=== PATIENT | female | born 1970 | race Caucasian/White ===

== ENCOUNTER 2016-12-10 10:28 | Emergency (ER) | payer BC ==
[2016-12-10 12:02] VITALS: BP 114/64
--- NOTE | 2016-12-10 12:24 | UC ---
Skin Complaint HPI - HPI Summary HPI Summary: c/o "cold sore" on R lower lip that started . tingling and burning. never had a cold sore before. she was in [place] this past week adn she noted while returning home 2 days ago. no fevers, no gland swelling. feels fine o/w. - History of Current Complaint Chief Complaint: UCSkin Time Seen by Provider: 12/10/16 12:24 Stated Complaint: SKIN COMPLAINT Hx Last Menstrual Period: IS ON THE CONTINUOUS BC PILL HAS A PERIOD EVERY 3 MONTHS.LAST ONE 01/02 - Allergy/Home Medications Allergies/Adverse Reactions: Allergies Allergy/AdvReac Type Severity Reaction Status Date / Time No Known Allergies Allergy Verified 12/10/16 11:57 Review of Systems Constitutional: Negative Skin: Other - rt lower lip lesion/starting to crust over. swelling decreased with ice. Eyes: Negative ENT: Negative Respiratory: Negative Cardiovascular: Negative Gastrointestinal: Negative Genitourinary: Negative Motor: Negative Neurovascular: Negative Musculoskeletal: Negative Neurological: Negative Psychological: Negative All Other Systems Reviewed And Are Negative: Yes PMH/Surg Hx/FS Hx/Imm Hx Previously Healthy: Yes Endocrine History Of: Denies: Diabetes, Thyroid Disease Cardiovascular History Of: Denies: Cardiac Disorders, Hypertension Respiratory History Of: Denies: Asthma - Surgical History Surgical History: Yes Surgery Procedure, Year, and Place: X'S 1 - Family History Known Family History: Positive: Hypertension - Social History Alcohol Use: None Substance Use Type: None Smoking Status (MU): Never Smoked Tobacco Physical Exam Triage Information Reviewed: Yes Appearance: Well-Appearing, No Pain Distress, Well-Nourished - very pleasant Vital Signs: Initial Vital Signs Temp 98.1 F 12/10/16 11:58 Pulse 71 12/10/16 11:58 Resp 16 12/10/16 11:58 BP 114/64 12/10/16 11:58 Pulse Ox 99 12/10/16 11:58 Vital Signs Reviewed: Yes Eyes: Positive: Conjunctiva Clear ENT: Positive: Pharynx normal, TMs normal, Other: - Rt lower lip with moderate sized lesion/swelling. mostly crusted over. tender. Dental Exam: Normal Neck exam: Normal Neck: Positive: Supple, Nontender, No Lymphadenopathy Respiratory Exam: Normal Respiratory: Positive: Lungs clear, Normal breath sounds, No respiratory distress, No accessory muscle use Cardiovascular Exam: Normal Cardiovascular: Positive: RRR, No Murmur, Pulses Normal Abdominal Exam: Normal Abdomen Description: Positive: Soft Musculoskeletal Exam: Normal Neurological Exam: Normal Psychological Exam: Normal Skin Exam: Normal Course/Dx - Course Course Of Treatment: sx started within 48s hrs. discussed treatment. I have given her extra pills so that she can have some if she gets future outbreak. Treat at onset of tingling. 2 gms Q 12hrs x 2 doses. she is very agreeable with this plan. - Differential Diagnoses - Skin Complaint Differential Diagnoses: Angioedema, Viral Exanthem, Other - herpes - Diagnoses Provider Diagnoses: oral herpes lesion Discharge - Discharge Plan Condition: Stable Disposition: HOME Prescriptions: ValACYclovir (*) [Valtrex 1 GM(*)] 2 gm PO BID #28 tab Patient Education Materials: Oral Herpes Simplex Virus Infections (ED) Referrals: Christiano Reed MD [Primary Care Provider] - If Needed
== END 2016-12-10 12:50 | disposition home or self-care (01) ==
LOC: UCCORT 10:28
DX: B00.1 Herpesviral vesicular dermatitis (principal)
CPT/HCPCS: 99212; G0463

== ENCOUNTER 2019-03-25 20:14 | Emergency (ER) | payer BC ==
--- NOTE | 2019-03-25 20:24 | UC ---
Eye Complaint HPI - HPI Summary HPI Summary: 49 yo female presents with left eye redness and draining. She tells me that for the last 2 days she has had left eye redness, itching, and clear discharge. She has no pain in the eye and denies getting anything into her eye. She does not wear glasses or contacts. Feels well otherwise and denies fever, sinus symptoms , sore throat, cough, headache, or rash. - History of Current Complaint Stated Complaint: EYE ISSUE Time Seen by Provider: 03/25/19 20:21 Hx Obtained From: Patient Hx Last Menstrual Period: IS ON THE CONTINUOUS BC PILL HAS A PERIOD EVERY 3 MONTHS.LAST ONE 01/02 Onset/Duration: Sudden Onset Severity Initially: Mild Severity Currently: Mild Pain Intensity: 3 Pain Scale Used: 0-10 Numeric - Allergies/Home Medications Allergies/Adverse Reactions: Allergies Allergy/AdvReac Type Severity Reaction Status Date / Time No Known Allergies Allergy Verified 03/25/19 20:28 PMH/Surg Hx/FS Hx/Imm Hx - Additional Past Medical History Additional PMH: Cold sores - Surgical History Surgical History: Yes Surgery Procedure, Year, and Place: X'S 1 - Family History Known Family History: Positive: Hypertension - Social History Lives: With Family Alcohol Use: None Substance Use Type: None Smoking Status (MU): Never Smoked Tobacco Review of Systems All Other Systems Reviewed And Are Negative: Yes Constitutional: Positive: Negative Skin: Positive: Negative Eyes: Positive: Drainage, Eye Redness ENT: Positive: Negative Respiratory: Positive: Negative Cardiovascular: Positive: Negative Gastrointestinal: Positive: Negative Neurovascular: Positive: Negative Neurological: Positive: Negative Psychological: Positive: Negative Physical Exam - Summary Physical Exam Summary: GENERAL: WDWN. No pain distress. SKIN: No rashes, sores, lesions, or open wounds. HEENT: Head: AT/NC Eyes: EOM intact. PERRLA. LEFT EYE: Mild scleral injection. Conjunctiva with mild erythema and inflammation. Mild clear discharge. RIGHT EYE : Conjunctiva clear without inflammation or discharge. No FBs appreciated Nose: NTTP maxillary and frontal sinus. NECK: Supple. Nontender. No lymphadenopathy. CHEST: No accessory muscle use. Breathing comfortably and in no distress. CV: Pulses intact. Cap refill <2seconds NEURO: Alert. PSYCH: Age appropriate behavior. Triage Information Reviewed: Yes Vital Signs: Vital Signs: Temp Pulse Resp BP Pulse Ox 99.2 F 71 18 95/64 99 03/25/19 20:23 03/25/19 20:23 03/25/19 20:23 03/25/19 20:23 03/25/19 20:23 Vital Signs Reviewed: Yes Eye Complaint Course/Dx - Course Course Of Treatment: Left conjunctivitis - Differential Dx/Diagnosis Provider Diagnosis: Conjunctivitis Discharge - Sign-Out/Discharge Documenting (check all that apply): Patient Departure All imaging exams completed and their final reports reviewed: No Studies - Discharge Plan Condition: Stable Disposition: HOME Prescriptions: Ofloxacin 0.3% (Eye Drop) [Ocuflox OPTH 0.3% (Eye Drop)] 1 drop LEFT EYE QID #1 btl Patient Education Materials: Conjunctivitis (ED) Referrals: Nicolasa Garcia NP [Primary Care Provider] - Additional Instructions: If you develop a fever, shortness of breath, chest pain, new or worsening symptoms - please call your PCP or go to the ED immediately. - Billing Disposition and Condition Condition: STABLE Disposition: Home
[2019-03-25 20:28] VITALS: BP 95/64
== END 2019-03-25 20:41 | disposition home or self-care (01) ==
LOC: UCCORT 20:14
DX: H10.9 Unspecified conjunctivitis (principal)
CPT/HCPCS: 99212; G0463

== ENCOUNTER 2019-05-03 18:55 | Emergency (ER) | payer BC ==
[2019-05-03 20:11] VITALS: BP 109/67
--- NOTE | 2019-05-03 20:17 | UC ---
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 exposed to second hand smoke at work since 04/24/19. Pt. 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 smoek was bothersome so they changed her to a non-smoking building, hwoever there are residents who have been grandfathered in and cont to smoke in the [facility] -denies asthma, no FHx asthma. -reports wheezing in her chest [facility] -no fevers/chills -no runny/congested or stuffy nose. -no ST/ear pain -no swelling in lips/tongue or throat -no rash/hives -feels more sensitive such that her deodorant seems irritating to her now. -No CP/SOB -no itching. - History of Current Complaint Chief Complaint: UCGeneralIllness Stated Complaint: ST Time Seen by Provider: 05/03/19 20:16 Hx Last Menstrual Period: IS ON THE CONTINUOUS BC PILL HAS A PERIOD EVERY 3 MONTHS.LAST ONE 01/02 Pain Intensity: 7 - Allergies/Home Medications Allergies/Adverse Reactions: Allergies Allergy/AdvReac Type Severity Reaction Status Date / Time No Known Allergies Allergy Verified 05/03/19 20:06 PMH/Surg Hx/FS Hx/Imm Hx Previously Healthy: Yes - Surgical History Surgical History: Yes Surgery Procedure, Year, and Place: X'S 1 - Family History Known Family History: Positive: Hypertension Negative: Respiratory Disease - no asthma - Social History Alcohol Use: None Substance Use Type: None Smoking Status (MU): Never Smoked Tobacco Review of Systems All Other Systems Reviewed And Are Negative: Yes Constitutional: Positive: Negative. Negative: Fever, Chills, Fatigue Skin: Positive: Negative. Negative: Rash Eyes: Positive: Other - itchy ENT: Negative: Sore Throat, Ear Ache, Nasal Discharge, Sinus Congestion, Sinus Pain/Tenderness Respiratory: Positive: Negative, Other - see above. Negative: Shortness Of Breath, Cough Cardiovascular: Positive: Negative. Negative: Palpitations, Chest Pain Gastrointestinal: Positive: Negative. Negative: Abdominal Pain, Vomiting, Diarrhea, Nausea Genitourinary: Positive: Negative Motor: Positive: Negative Neurovascular: Positive: Negative Musculoskeletal: Positive: Negative Neurological: Positive: Negative Psychological: Positive: Negative Is Patient Immunocompromised?: No Physical Exam Triage Information Reviewed: Yes Appearance: Well-Appearing, No Pain Distress, Well-Nourished - vocie normal, speaks full senetnces without any distress Vital Signs: Initial Vital Signs Temp 97.5 F 05/03/19 20:06 Pulse 75 05/03/19 20:06 Resp 24 05/03/19 20:06 BP 109/67 05/03/19 20:06 Pulse Ox 100 05/03/19 20:06 Vital Signs Reviewed: Yes Eye Exam: Normal Eyes: Positive: Conjunctiva Clear. Negative: Discharge ENT Exam: Normal ENT: Positive: Pharynx normal, TMs normal, Uvula midline. Negative: Pharyngeal erythema, Nasal congestion, Nasal drainage, TM bulging, TM red, Tonsillar swelling, Tonsillar exudate, Sinus tenderness Neck exam: Normal Neck: Positive: Supple, Nontender, No Lymphadenopathy Respiratory Exam: Normal Respiratory: Positive: Chest non-tender, Lungs clear, Normal breath sounds, No respiratory distress, No accessory muscle use. Negative: Crackles, Rhonchi, Stridor, Wheezing Cardiovascular Exam: Normal Cardiovascular: Positive: RRR, No Murmur Abdominal Exam: Normal Neurological Exam: Normal Psychological Exam: Normal Skin Exam: Normal Throat Pain/Nasal Course/Dx - Course Course Of Treatment: There is no e/o any physical impairment at the time of this vist. Exam is normal. trial OTC anti-histamien and alb prn for sx she may get w/ exposure. disk SEs of albuterol such as feeling jittery or palp. -can follow up further w/ PCP. -It appears that is a subjective irritant to her at this time based on normal exam today. -further work up with imaging. PFTs and referral to specialist could be considered if sx increase or persist. - Differential Dx/Diagnosis Differential Diagnosis/HQI/PQRI: Laryngitis, Pharyngitis, URI Provider Diagnosis: Pharyngitis, Second hand smoke exposure Discharge ED - Sign-Out/Discharge Documenting (check all that apply): Patient Departure All imaging exams completed and their final reports reviewed: No Studies - Discharge Plan Condition: Stable Disposition: HOME Prescriptions: Albuterol HFA INHALER* [Ventolin HFA Inhaler*] 2 puff INH Q4H PRN 30 Days #1 mdi PRN Reason: Wheezing Patient Education Materials: Wheezing (ED) Referrals: Nicolasa Garcia NP [Primary Care Provider] - 1 Week Additional Instructions: We discussed starting OTC anti-histamine such as cetirizine 10mgs or loratadine 10mgs daily for your symptoms. We are also prescribing an albuterol inhaler for any shortness of breath or wheezing, although you are not displaying any of these symptoms at this time. - Billing Disposition and Condition Condition: STABLE Disposition: Home
== END 2019-05-03 20:42 | disposition home or self-care (01) ==
LOC: UCCORT 18:55
DX: J02.9 Acute pharyngitis, unspecified (principal); Z77.22 Contact with and (suspected) exposure to environmental tobacco smoke (acute) (chronic)
CPT/HCPCS: 99212; G0463